=== PATIENT | female | born 1975 ===

== ENCOUNTER 2025-04-28 10:15 | Inpatient (IN) | payer OTHER ==
[~2025-04-28] VITALS: Ht 162.6 cm; Wt 75.7 kg
[2025-04-28] MEDS ORDERED: COZAAR50 MG PO (11:06)
[2025-04-28] MEDS ORDERED: [UNRECOGNIZED DRUG - REMARK] (11:07)
[2025-04-28 11:10] VITALS: BP 140/73
[2025-05-04] MEDS ORDERED: POVIDONE-IODINE 118 ML BOTT TOP ONE (07:00)
[2025-05-04] MEDS ORDERED: PANTOPRAZOLE SODIUM 40 MG/VIAL VIAL ONE (07:05)
[2025-05-04] MEDS ORDERED: CLINDAMYCIN PHOSPHATE 150 MG/ML (900mg) ONE (07:08)
[2025-05-04] MEDS ORDERED: SUGAMMADEX SODIUM 200 MG/2 ML VIAL IV ONE (09:10)
[2025-05-04] MEDS ORDERED: hydrALAZINE HCL 20 MG VIAL ONE (11:59)
[2025-05-04] MEDS ORDERED: MORPHINE SULFATE 4 MG/ML CARTRIDGE IV PRN (13:00)
[2025-05-04] MEDS ORDERED: hydrALAZINE HCL 20 MG VIAL IV ONE (13:00)
[2025-05-04 14:07] VITALS: BP 160/70
[2025-05-04] MEDS ORDERED: RINGERS SOLUTION,LACTATED 1,000 ML IV PUSH SCH (14:15)
[2025-05-04 16:00] VITALS: BP 149/69
[2025-05-04] MEDS ORDERED: ENALAPRILAT DIHYDRATE 1.25 MG/ML VIAL IV PRN (16:15)
[2025-05-04] MEDS ORDERED: CLINDAMYCIN PHOSPHATE 150 MG/ML (900mg) IV SCH (17:00)
[2025-05-04] MEDS ORDERED: MORPHINE SULFATE 4 MG/ML CARTRIDGE IV SCH (17:00)
[2025-05-04] MEDS ORDERED: ONDANSETRON HCL 2 MG/ML VIAL IV SCH (17:00)
[2025-05-04] MEDS ORDERED: FAMOTIDINE/PF 20 MG in 0.9 % SODIUM CHLORIDE 8 ML IV PUSH SCH (21:00)
[2025-05-05 02:50] VITALS: BP 146/66
[2025-05-05] MEDS ORDERED: KETOROLAC TROMETHAMINE 10 MG TABLET PO SCH (06:00)
[2025-05-05 08:00] VITALS: BP 110/73
[2025-05-05] MEDS ORDERED: LOSARTAN POTASSIUM 50 MG TABLET PO SCH (09:00)
[2025-05-05 16:35] VITALS: BP 128/74
[2025-05-06 02:17] VITALS: BP 134/68
[2025-05-06 08:00] VITALS: BP 128/77
== END 2025-05-06 11:29 | disposition home or self-care (01) | DRG 743 ==
LOC: OB/GYN 05-04 06:00 → O/R 05-04 06:00 → SURH 05-04 10:15 → OB/GYN 05-04 13:05
PROVIDERS: ADMIT Obstetrics & Gynecology; ATTEND Obstetrics & Gynecology
PROC: 0UT70ZZ Resection of Bilateral Fallopian Tubes, Open Approach (ICD-10-PCS; 2025-05-04)
PROC: 0UT20ZZ Resection of Bilateral Ovaries, Open Approach (ICD-10-PCS; 2025-05-04)
PROC: 0UN10ZZ Release Left Ovary, Open Approach (ICD-10-PCS; 2025-05-04)
PROC: 0DNW0ZZ Release Peritoneum, Open Approach (ICD-10-PCS; 2025-05-04)
PROC: 0TNB0ZZ Release Bladder, Open Approach (ICD-10-PCS; 2025-05-04)
PROC: 0DN80ZZ Release Small Intestine, Open Approach (ICD-10-PCS; 2025-05-04)
PROC: 0UT90ZL Resection of Uterus, Supracervical, Open Approach (ICD-10-PCS; principal; 2025-05-04 11:30)
DX: D25.1 Intramural leiomyoma of uterus (principal); D25.2 Subserosal leiomyoma of uterus; D25.0 Submucous leiomyoma of uterus; N83.02 Follicular cyst of left ovary; N73.6 Female pelvic peritoneal adhesions (postinfective)